=== PATIENT | female | born 1985 | race Hispanic/Latino ===

== ENCOUNTER 2021-09-04 02:40 | Emergency (ER) | payer MEDICAID, SELFPAY ==
[2021-09-04] MEDS ORDERED: Ketorolac Tromethamine 30 MG/ML VIAL ONE (03:13)
[2021-09-04 03:15] LABS: #Basophils 0.1 thou/uL (0.0-0.2); #Eosinphils 0.2 thou/uL (0.0-0.7); #Lymphocytes 1.5 thou/uL (1.20-3.40); #Monocytes 0.5 thou/uL (0.11-0.59); #Neutrophils 8.4 thou/uL (1.40-6.50); %Basophils 0.5 % (0.0-1.0); %Lymphocytes 14.2 % (21.0-51.0); %Monocytes 4.8 % (0.0-10.0); %Neutrophils 78.5 % (42.0-75.0); Hemoglobin 13.5 g/dL (12.0-16.0); Mean Corpuscular HGB CONC 33.7 g/dL (32.0-36.0); Mean Corpuscular Hemoglobin 31.5 pg (27.0-31.0); Mean Corpuscular Volume 93.5 fL (78.0-98.0); Mean Platelet Volume 7.4 fL (7.4-10.4); Platelet Count 273 thou/uL (130-400); White Blood Cell (WBC) Count 10.7 thou/uL (4.8-10.8)
[2021-09-04 03:22] LABS: Bilirubin Negative (Negative); Blood, Urine Negative (Negative); Clarity Turbid (Clear); Glucose, Urine (Dipstick) Normal (Negative); Ketone, Urine Negative (Negative); Leukocyte Negative Leu/uL (Negative); Nitrite Negative (Negative); Protein, Urine (Dipstick) 10 mg/dL (Neg-Trace); Specific Gravity, Urine 1.023 (1.002-1.036); Urobilinogen Normal mg/dL (Less than 2)
[2021-09-04 03:27] LABS: Pregnancy Test - Urine (BHCG) Negative (Negative); Pregu Control Background? CLEAR/WHITE (CLR/WHITE); Pregu Control Bar Appear? YES (CONTROL BAR); Specific Gravity 1.023 (1.002-1.036)
[2021-09-04 03:34] LABS: ALT (SGPT) 12 U/L (8-55); AST (SGOT) 13 U/L (5-34); Albumin 4.4 g/dL (3.5-5.0); Alkaline Phosphatase 53 U/L (40-110); Anion Gap 14 mmol/L (10-20); BUN (Urea Nitrogen) 18 mg/dL (7.0-18.7); Bilirubin, Total 0.3 mg/dL (0.2-1.2); Calc. Creatinine Clearance 0 mL/min (70-130); Calcium 9.4 mg/dL (7.8-10.44); Carbon Dioxide 23 mmol/L (22-29); Chloride 103 mmol/L (98-107); Glucose 121 mg/dL (70-105); Lipase 18 U/L (8-78); Potassium 3.7 mmol/L (3.5-5.1); Protein, Total 7.4 g/dL (6.0-8.3); Sodium 136 mmol/L (136-145)
== END 2021-09-04 04:10 | disposition home or self-care (01) ==
LOC: ERS 02:40
DX: K80.20 Calculus of gallbladder without cholecystitis without obstruction (principal); Z72.0 Tobacco use
CPT/HCPCS: 76705; 80053; 81003; 81025; 83690; 85025; 96374; J1885

== ENCOUNTER 2022-06-12 02:02 | Emergency (ER) | payer SELFPAY ==
[2022-06-12 02:57] LABS: Bilirubin Negative (Negative); Blood, Urine Negative (Negative); Clarity Extra Turbid (Clear); Glucose, Urine (Dipstick) Normal (Negative); Ketone, Urine Negative (Negative); Leukocyte Negative Leu/uL (Negative); Nitrite 2+ (Negative); Protein, Urine (Dipstick) 10 mg/dL (Neg-Trace); RBC/HPF 0-3 HPF (0-3); Specific Gravity, Urine 1.026 (1.002-1.036); Urobilinogen Normal mg/dL (Less than 2)
[2022-06-12 02:59] LABS: Bacteria/HPF 3+ HPF (None Seen)
[2022-06-12 03:01] LABS: #Basophils 0.1 thou/uL (0.0-0.2); #Eosinphils 0.3 thou/uL (0.0-0.7); #Lymphocytes 2.1 thou/uL (1.20-3.40); #Monocytes 0.7 thou/uL (0.11-0.59); #Neutrophils 6.8 thou/uL (1.40-6.50); %Basophils 0.7 % (0.0-1.0); %Eosinophils 2.6 % (0.0-10.0); %Lymphocytes 21.4 % (21.0-51.0); %Monocytes 6.9 % (0.0-10.0); %Neutrophils 68.4 % (42.0-75.0); Hemoglobin 12.8 g/dL (12.0-16.0); Mean Corpuscular HGB CONC 33.4 g/dL (32.0-36.0); Mean Corpuscular Hemoglobin 31.4 pg (27.0-31.0); Mean Corpuscular Volume 94.1 fl (78.0-98.0); Mean Platelet Volume 7.8 fL (7.4-10.4); Platelet Count 283 10x3/uL (130-400); RBC Distribution Width 11.9 % (11.5-14.5); Red Blood Cell (RBC) Count 4.08 mill/uL (4.20-5.40)
[2022-06-12 03:04] LABS: BHCG - Serum Negative (NEGATIVE); Pregs Control Background? CLEAR/WHITE (CLR/WHITE); Pregs Control Bar Appear? YES (CONTROL BAR)
[2022-06-12 03:22] LABS: ALT (SGPT) 8 U/L (8-55); AST (SGOT) 11 U/L (5-34); Albumin 4.3 g/dL (3.5-5.0); Alkaline Phosphatase 54 U/L (40-110); Anion Gap 11 mmol/L (10-20); BUN (Urea Nitrogen) 17 mg/dL (7.0-18.7); Bilirubin, Total 0.3 mg/dL (0.2-1.2); Calc. Creatinine Clearance 0 mL/min (70-130); Carbon Dioxide 26 mmol/L (22-29); Chloride 104 mmol/L (98-107); Estimated GFR 107; Globulin 2.7 g/dL (2.4-3.5); Glucose 97 mg/dL (70-105); Lipase 18 U/L (8-78); Potassium 3.9 mmol/L (3.5-5.1); Sodium 137 mmol/L (136-145)
[2022-06-12] MEDS ORDERED: Ondansetron ODT 4 MG TAB ONE (04:22)
[2022-06-12] MEDS ORDERED: Acetaminophen 500 MG TAB ONE (04:22)
== END 2022-06-12 04:50 | disposition home or self-care (01) ==
LOC: ERS 02:02
DX: B34.9 Viral infection, unspecified (principal); N39.0 Urinary tract infection, site not specified; F17.200 Nicotine dependence, unspecified, uncomplicated
CPT/HCPCS: 36415; 80053; 81003; 81015; 83690; 84703; 85025; 87077; 87086; 87186; 99284; Q0162

== ENCOUNTER 2022-07-29 16:41 | Inpatient (IN) | payer SELFPAY ==
[2022-07-29 17:04] LABS: #Eosinphils 0.1 thou/uL (0.0-0.7); #Lymphocytes 0.8 thou/uL (1.20-3.40); #Monocytes 0.5 thou/uL (0.11-0.59); #Neutrophils 5.5 thou/uL (1.40-6.50); %Basophils 0.3 % (0.0-1.0); %Lymphocytes 11.4 % (21.0-51.0); %Monocytes 7.1 % (0.0-10.0); %Neutrophils 79.2 % (42.0-75.0); Hemoglobin 13.4 g/dL (12.0-16.0); Mean Corpuscular HGB CONC 33.4 g/dL (32.0-36.0); Mean Corpuscular Hemoglobin 30.9 pg (27.0-31.0); Mean Corpuscular Volume 92.7 fl (78.0-98.0); Mean Platelet Volume 7.7 fL (7.4-10.4); Platelet Count 337 10x3/uL (130-400); RBC Distribution Width 11.9 % (11.5-14.5); Red Blood Cell (RBC) Count 4.33 mill/uL (4.20-5.40)
[2022-07-29 17:16] LABS: BHCG - Serum Negative (NEGATIVE); Pregs Control Background? CLEAR/WHITE (CLR/WHITE); Pregs Control Bar Appear? YES (CONTROL BAR)
[2022-07-29 17:27] LABS: ALT (SGPT) 837 U/L (8-55); AST (SGOT) 570 U/L (5-34); Albumin 4.5 g/dL (3.5-5.0); Alkaline Phosphatase 185 U/L (40-110); Anion Gap 14 mmol/L (10-20); BUN (Urea Nitrogen) 11 mg/dL (7.0-18.7); Bilirubin, Total 3.2 mg/dL (0.2-1.2); Calc. Creatinine Clearance 0 mL/min (70-130); Calcium 9.6 mg/dL (7.8-10.44); Carbon Dioxide 23 mmol/L (22-29); Chloride 104 mmol/L (98-107); Estimated GFR 107; Globulin 3.2 g/dL (2.4-3.5); Glucose 134 mg/dL (70-105); Lipase 11 U/L (8-78); Potassium 3.7 mmol/L (3.5-5.1); Protein, Total 7.7 g/dL (6.0-8.3); Sodium 137 mmol/L (136-145)
[2022-07-29] MEDS ORDERED: Morphine 4 MG/ML VIAL ONE (18:22)
[2022-07-29] MEDS ORDERED: Ondansetron PF 4 MG/2 ML Vial ONE (18:22)
[2022-07-29] MEDS ORDERED: Promethazine HCl 25 MG/ML VIAL IM PRN (19:09)
[2022-07-29] MEDS ORDERED: Ondansetron PF 4 MG/2 ML Vial IVP PRN (19:09)
[2022-07-29] MEDS ORDERED: TETANUS, DIPHTHERIA TOX,ADULT (TDVAX) 0.5 ML VIAL IM ONE (19:09)
[2022-07-29] MEDS ORDERED: Dextrose 50% Abboject 50 ML SYRINGE SLOW IVP PRN (19:09)
[2022-07-29] MEDS ORDERED: Dextrose 5% in Water 1,000 ML IV PRN (19:09)
[2022-07-29] MEDS ORDERED: Piperacillin/Tazobactam 3.375 GM in Sodium Chloride 0.9% 100 ML IVPB SCH (19:30)
[2022-07-29] MEDS ORDERED: Piperacillin/Tazobactam 3.375 GM VIAL ONE (19:30)
[2022-07-29] MEDS: Famotidine 20 MG TAB PO SCH (22:41)
[2022-07-29] MEDS: Morphine 2 MG/ML VIAL SLOW IVP PRN (22:42)
[2022-07-29] MEDS: Sodium Chloride 0.9% 1,000 ML IV SCH (22:43)
[2022-07-30] MEDS: Piperacillin/Tazobactam 3.375 GM in Sodium Chloride 0.9% 100 ML IVPB SCH ×3 (00:38→19:18)
[2022-07-30] MEDS: Morphine 2 MG/ML VIAL SLOW IVP PRN ×4 (00:38→21:04)
[2022-07-30 01:30] VITALS: BMI 23.6
[2022-07-30 03:16] LABS: SARS-CoV-2 NAA Rapid Test Not Detected (NotDetected)
[2022-07-30 05:48] LABS: #Eosinphils 0.2 thou/uL (0.0-0.7); #Monocytes 0.5 thou/uL (0.11-0.59); #Neutrophils 4.6 thou/uL (1.40-6.50); %Basophils 0.4 % (0.0-1.0); %Eosinophils 3.8 % (0.0-10.0); %Lymphocytes 16.1 % (21.0-51.0); %Monocytes 7.4 % (0.0-10.0); %Neutrophils 72.3 % (42.0-75.0); Mean Corpuscular HGB CONC 32.7 g/dL (32.0-36.0); Mean Corpuscular Hemoglobin 30.8 pg (27.0-31.0); Mean Corpuscular Volume 94.2 fl (78.0-98.0); Mean Platelet Volume 7.8 fL (7.4-10.4); Platelet Count 286 10x3/uL (130-400); RBC Distribution Width 12.1 % (11.5-14.5); Red Blood Cell (RBC) Count 3.91 mill/uL (4.20-5.40); White Blood Cell (WBC) Count 6.3 10x3/uL (4.8-10.8)
[2022-07-30 06:07] LABS: ALT (SGPT) 705 U/L (8-55); AST (SGOT) 374 U/L (5-34); Albumin 3.7 g/dL (3.5-5.0); Alkaline Phosphatase 191 U/L (40-110); Anion Gap 8 mmol/L (10-20); BUN (Urea Nitrogen) 6 mg/dL (7.0-18.7); Calc. Creatinine Clearance 109 mL/min (70-130); Calcium 8.7 mg/dL (7.8-10.44); Carbon Dioxide 27 mmol/L (22-29); Chloride 107 mmol/L (98-107); Estimated GFR 115; Globulin 2.8 g/dL (2.4-3.5); Glucose 100 mg/dL (70-105); Protein, Total 6.5 g/dL (6.0-8.3); Sodium 138 mmol/L (136-145)
[2022-07-30] MEDS: Sodium Chloride 0.9% 1,000 ML IV SCH ×2 (06:48→21:13)
[2022-07-30] MEDS: Famotidine 20 MG TAB PO SCH ×2 (08:28→21:04)
[2022-07-30] MEDS ORDERED: Iopamidol 30 ML ONE (14:28)
[2022-07-30] MEDS ORDERED: Bupivacaine/Epinephrine 0.25% 30 ML VIAL ONE (14:28)
[2022-07-30] MEDS ORDERED: Piperacillin/Tazobactam 3.375 GM VIAL ONE (15:13)
[2022-07-30] MEDS ORDERED: Sodium Chloride 0.9% 100 ML ONE (15:13)
[2022-07-30] MEDS ORDERED: Promethazine HCl 25 MG/ML VIAL ONE (15:27)
[2022-07-30] MEDS ORDERED: fentaNYL PF 100 MCG/2 ML SYRINGE ONE (15:28)
[2022-07-30] MEDS ORDERED: Famotidine/PF 20 mg/2ml Vial ONE (15:28)
[2022-07-30] MEDS ORDERED: ePHEDrine 50 MG/ML VIAL ONE (15:45)
[2022-07-30] MEDS ORDERED: Ketorolac Tromethamine 30 MG/ML VIAL ONE (15:45)
[2022-07-30] MEDS ORDERED: Dexamethasone 20 MG/5 ML VIAL ONE (15:45)
[2022-07-30] MEDS ORDERED: PROPOFOL 200 MG/20 ML VIAL ONE (15:45)
[2022-07-30] MEDS ORDERED: Lidocaine 1% PF 5 ML VIAL ONE (15:45)
[2022-07-30] MEDS ORDERED: Ondansetron PF 4 MG/2 ML Vial ONE (15:45)
[2022-07-30] MEDS ORDERED: Rocuronium Bromide 10 MG/ML (10ML VIAL) ONE (15:45)
[2022-07-30] MEDS ORDERED: Ondansetron HCl/PF 4 MG/2 ML Vial IVP PRN (18:32)
[2022-07-30] MEDS ORDERED: Promethazine HCl 25 MG/ML VIAL IM PRN (18:32)
[2022-07-30] MEDS ORDERED: Fentanyl 100 MCG/2 ML VIAL ONE (18:39)
[2022-07-31] MEDS: Sodium Chloride 0.9% 1,000 ML IV SCH ×3 (00:18→17:47)
[2022-07-31] MEDS: Morphine 2 MG/ML VIAL SLOW IVP PRN ×4 (00:18→20:51)
[2022-07-31 07:17] LABS: #Lymphocytes 0.6 thou/uL (1.20-3.40); #Monocytes 0.5 thou/uL (0.11-0.59); #Neutrophils 5.8 thou/uL (1.40-6.50); %Basophils 0.3 % (0.0-1.0); %Eosinophils 0.4 % (0.0-10.0); %Monocytes 7.4 % (0.0-10.0); %Neutrophils 83.9 % (42.0-75.0); Hemoglobin 11.2 g/dL (12.0-16.0); Mean Corpuscular HGB CONC 32.8 g/dL (32.0-36.0); Mean Corpuscular Hemoglobin 30.9 pg (27.0-31.0); Mean Corpuscular Volume 94.2 fl (78.0-98.0); Mean Platelet Volume 8.3 fL (7.4-10.4); Platelet Count 252 10x3/uL (130-400); RBC Distribution Width 12.2 % (11.5-14.5); Red Blood Cell (RBC) Count 3.62 mill/uL (4.20-5.40)
[2022-07-31 07:38] LABS: ALT (SGPT) 494 U/L (8-55); AST (SGOT) 175 U/L (5-34); Albumin 3.4 g/dL (3.5-5.0); Alkaline Phosphatase 230 U/L (40-110); Anion Gap 11 mmol/L (10-20); BUN (Urea Nitrogen) 6 mg/dL (7.0-18.7); Bilirubin, Total 3.6 mg/dL (0.2-1.2); Calc. Creatinine Clearance 122 mL/min (70-130); Calcium 8.8 mg/dL (7.8-10.44); Carbon Dioxide 24 mmol/L (22-29); Chloride 106 mmol/L (98-107); Estimated GFR 118; Globulin 2.8 g/dL (2.4-3.5); Glucose 97 mg/dL (70-105); Phosphorus 3.7 mg/dL (2.3-4.7); Potassium 3.9 mmol/L (3.5-5.1); Protein, Total 6.2 g/dL (6.0-8.3); Sodium 137 mmol/L (136-145)
[2022-07-31] MEDS: Famotidine 20 MG TAB PO SCH ×2 (08:22→20:52)
[2022-07-31] MEDS: Piperacillin/Tazobactam 3.375 GM in Sodium Chloride 0.9% 100 ML IVPB SCH ×3 (09:22→17:47)
[2022-07-31] MEDS ORDERED: fentaNYL PF 100 MCG/2 ML SYRINGE ONE (09:27)
[2022-07-31] MEDS ORDERED: SUGAMMADEX SODIUM 200 MG/2 ML VIAL ONE (09:27)
[2022-07-31] MEDS ORDERED: Iopamidol 30 ML ONE (10:09)
[2022-07-31] MEDS ORDERED: Indomethacin 50 MG SUPP ONE (10:09)
[2022-07-31] MEDS ORDERED: Midazolam HCl 2 mg/2 ml Vial ONE (10:15)
[2022-07-31] MEDS ORDERED: Fentanyl 100 MCG/2 ML VIAL ONE (10:16)
[2022-07-31] MEDS ORDERED: Sodium Chloride 0.9% 100 ML ONE (10:20)
[2022-07-31] MEDS ORDERED: Piperacillin/Tazobactam 3.375 GM VIAL ONE (10:20)
[2022-07-31] MEDS ORDERED: Ketorolac Tromethamine 30 MG/ML VIAL ONE (10:50)
[2022-07-31] MEDS ORDERED: Lidocaine 1% PF 5 ML VIAL ONE (10:50)
[2022-07-31] MEDS ORDERED: Dexamethasone 20 MG/5 ML VIAL ONE (10:50)
[2022-07-31] MEDS ORDERED: Ondansetron PF 4 MG/2 ML Vial ONE (10:50)
[2022-07-31] MEDS ORDERED: PROPOFOL 200 MG/20 ML VIAL ONE (10:50)
[2022-07-31] MEDS ORDERED: Rocuronium Bromide 10 MG/ML (10ML VIAL) ONE (10:50)
[2022-07-31] MEDS ORDERED: Morphine Sulfate 2 MG/ML SYRINGE SLOW IVP PRN (12:04)
[2022-07-31] MEDS ORDERED: Promethazine HCl 25 MG/ML VIAL IM PRN (12:04)
[2022-07-31] MEDS ORDERED: HYDROmorphone 2 MG/ML VIAL SLOW IVP PRN (12:04)
[2022-07-31] MEDS ORDERED: Ondansetron HCl/PF 4 MG/2 ML Vial IVP PRN (12:04)
[2022-07-31] MEDS ORDERED: Meperidine HCl/PF 25 MG/ML VIAL SLOW IVP PRN (12:04)
[2022-07-31 19:47] LABS: Troponin I Less than 0.010 ng/mL (< 0.028)
[2022-08-01] MEDS: Morphine 2 MG/ML VIAL SLOW IVP PRN ×5 (01:22→20:30)
[2022-08-01] MEDS: Piperacillin/Tazobactam 3.375 GM in Sodium Chloride 0.9% 100 ML IVPB SCH ×3 (01:22→15:47)
[2022-08-01] MEDS: Sodium Chloride 0.9% 1,000 ML IV SCH ×4 (03:32→20:33)
[2022-08-01 06:37] LABS: #Lymphocytes 0.7 thou/uL (1.20-3.40); #Monocytes 0.6 thou/uL (0.11-0.59); #Neutrophils 9.9 thou/uL (1.40-6.50); %Basophils 0.1 % (0.0-1.0); %Eosinophils 0.4 % (0.0-10.0); %Lymphocytes 5.8 % (21.0-51.0); %Monocytes 4.9 % (0.0-10.0); %Neutrophils 88.9 % (42.0-75.0); Hemoglobin 11.6 g/dL (12.0-16.0); Mean Corpuscular Volume 93.8 fl (78.0-98.0); Platelet Count 263 10x3/uL (130-400); RBC Distribution Width 12.3 % (11.5-14.5); Red Blood Cell (RBC) Count 3.76 mill/uL (4.20-5.40); White Blood Cell (WBC) Count 11.2 10x3/uL (4.8-10.8)
[2022-08-01 07:03] LABS: ALT (SGPT) 365 U/L (8-55); AST (SGOT) 106 U/L (5-34); Albumin 3.2 g/dL (3.5-5.0); Alkaline Phosphatase 230 U/L (40-110); Anion Gap 11 mmol/L (10-20); BUN (Urea Nitrogen) 9 mg/dL (7.0-18.7); Bilirubin, Total 2.2 mg/dL (0.2-1.2); Calc. Creatinine Clearance 120 mL/min (70-130); Calcium 8.1 mg/dL (7.8-10.44); Carbon Dioxide 22 mmol/L (22-29); Chloride 108 mmol/L (98-107); Estimated GFR 118; Globulin 2.6 g/dL (2.4-3.5); Glucose 115 mg/dL (70-105); Magnesium 1.9 mg/dL (1.6-2.6); Potassium 3.5 mmol/L (3.5-5.1); Protein, Total 5.8 g/dL (6.0-8.3); Sodium 137 mmol/L (136-145)
[2022-08-01] MEDS ORDERED: Potassium Phosphate 30 MMOL in Sodium Chloride 0.9% 250 ML 250 ML IVPB SCH (07:45)
[2022-08-01] MEDS: Famotidine 20 MG TAB PO SCH ×2 (09:08→20:32)
[2022-08-01] MEDS ORDERED: Iopamidol 30 ML ONE ×2 (10:35→12:30)
[2022-08-01] MEDS ORDERED: Indomethacin 50 MG SUPP ONE (10:38)
[2022-08-01] MEDS ORDERED: Fentanyl 100 MCG/2 ML VIAL ONE (11:17)
[2022-08-01] MEDS ORDERED: Midazolam HCl 2 mg/2 ml Vial ONE (11:35)
[2022-08-01] MEDS ORDERED: Ondansetron PF 4 MG/2 ML Vial ONE (11:41)
[2022-08-01] MEDS ORDERED: Glycopyrrolate 0.2 MG/ML 5 ML SYRINGE ONE (11:41)
[2022-08-01] MEDS ORDERED: Rocuronium Bromide 10 MG/ML (10ML VIAL) ONE (11:41)
[2022-08-01] MEDS ORDERED: PROPOFOL 200 MG/20 ML VIAL ONE (11:41)
[2022-08-01] MEDS ORDERED: Lidocaine 1% PF 5 ML VIAL ONE (11:41)
[2022-08-01] MEDS ORDERED: NEOSTIGMINE 3 MG/3 ML SYR 3 MG/3 ML SYRINGE ONE (11:41)
[2022-08-01] MEDS ORDERED: Dexamethasone 20 MG/5 ML VIAL ONE (11:41)
[2022-08-01] MEDS ORDERED: Ondansetron HCl/PF 4 MG/2 ML Vial IVP PRN (13:05)
[2022-08-01] MEDS ORDERED: Promethazine HCl 25 MG/ML VIAL IM PRN (13:05)
[2022-08-01] MEDS: Acetaminophen 325 MG TAB PO PRN (17:42)
[2022-08-02] MEDS: Piperacillin/Tazobactam 3.375 GM in Sodium Chloride 0.9% 100 ML IVPB SCH ×3 (01:15→16:31)
[2022-08-02] MEDS: Morphine 2 MG/ML VIAL SLOW IVP PRN (04:44)
[2022-08-02] MEDS: Acetaminophen 325 MG TAB PO PRN ×3 (04:44→18:14)
[2022-08-02 06:20] LABS: #Eosinphils 0.1 thou/uL (0.0-0.7); #Lymphocytes 1.3 thou/uL (1.20-3.40); #Monocytes 0.7 thou/uL (0.11-0.59); #Neutrophils 9.6 thou/uL (1.40-6.50); %Basophils 0.2 % (0.0-1.0); %Lymphocytes 10.7 % (21.0-51.0); %Monocytes 5.8 % (0.0-10.0); %Neutrophils 82.3 % (42.0-75.0); Hemoglobin 10.6 g/dL (12.0-16.0); Mean Corpuscular HGB CONC 32.3 g/dL (32.0-36.0); Mean Corpuscular Hemoglobin 30.5 pg (27.0-31.0); Mean Corpuscular Volume 94.6 fl (78.0-98.0); Mean Platelet Volume 8.2 fL (7.4-10.4); Platelet Count 256 10x3/uL (130-400); RBC Distribution Width 12.5 % (11.5-14.5); Red Blood Cell (RBC) Count 3.48 mill/uL (4.20-5.40); White Blood Cell (WBC) Count 11.7 10x3/uL (4.8-10.8)
[2022-08-02 06:41] LABS: ALT (SGPT) 239 U/L (8-55); AST (SGOT) 48 U/L (5-34); Albumin 3.1 g/dL (3.5-5.0); Alkaline Phosphatase 186 U/L (40-110); Anion Gap 10 mmol/L (10-20); BUN (Urea Nitrogen) 6 mg/dL (7.0-18.7); Bilirubin, Total 1.8 mg/dL (0.2-1.2); Calc. Creatinine Clearance 126 mL/min (70-130); Calcium 8.1 mg/dL (7.8-10.44); Carbon Dioxide 26 mmol/L (22-29); Chloride 108 mmol/L (98-107); Estimated GFR 119; Globulin 2.6 g/dL (2.4-3.5); Glucose 78 mg/dL (70-105); Lipase 314 U/L (8-78); Magnesium 1.8 mg/dL (1.6-2.6); Phosphorus 1.8 mg/dL (2.3-4.7); Potassium 3.6 mmol/L (3.5-5.1); Protein, Total 5.7 g/dL (6.0-8.3); Sodium 140 mmol/L (136-145)
[2022-08-02] MEDS ORDERED: FLU VACC QS2022-23(6MOS UP)/PF 60 MCG/0.5 ML SYRINGE IM ONE (09:00)
[2022-08-02] MEDS: Sodium Chloride 0.9% 1,000 ML IV SCH ×2 (09:11→16:31)
[2022-08-02] MEDS: Famotidine 20 MG TAB PO SCH ×2 (09:12→22:00)
[2022-08-02] MEDS: traMADol HCl 50 MG TAB PO PRN (21:58)
[2022-08-03] MEDS: Piperacillin/Tazobactam 3.375 GM in Sodium Chloride 0.9% 100 ML IVPB SCH ×2 (01:25→08:33)
[2022-08-03 06:00] LABS: #Eosinphils 0.4 thou/uL (0.0-0.7); #Lymphocytes 1.3 thou/uL (1.20-3.40); #Monocytes 0.7 thou/uL (0.11-0.59); #Neutrophils 10.9 thou/uL (1.40-6.50); %Basophils 0.2 % (0.0-1.0); %Eosinophils 3.1 % (0.0-10.0); %Lymphocytes 9.8 % (21.0-51.0); %Monocytes 5.4 % (0.0-10.0); %Neutrophils 81.5 % (42.0-75.0); Hemoglobin 10.3 g/dL (12.0-16.0); Mean Corpuscular Hemoglobin 30.9 pg (27.0-31.0); Mean Corpuscular Volume 93.7 fl (78.0-98.0); Platelet Count 272 10x3/uL (130-400); RBC Distribution Width 12.4 % (11.5-14.5); Red Blood Cell (RBC) Count 3.33 mill/uL (4.20-5.40); White Blood Cell (WBC) Count 13.4 10x3/uL (4.8-10.8)
[2022-08-03 07:06] LABS: ALT (SGPT) 170 U/L (8-55); AST (SGOT) 27 U/L (5-34); Albumin 2.9 g/dL (3.5-5.0); Alkaline Phosphatase 182 U/L (40-110); Anion Gap 13 mmol/L (10-20); BUN (Urea Nitrogen) 4 mg/dL (7.0-18.7); Bilirubin, Total 1.4 mg/dL (0.2-1.2); Calc. Creatinine Clearance 141 mL/min (70-130); Calcium 8.5 mg/dL (7.8-10.44); Carbon Dioxide 23 mmol/L (22-29); Chloride 106 mmol/L (98-107); Estimated GFR 123; Globulin 2.9 g/dL (2.4-3.5); Glucose 61 mg/dL (70-105); Lipase 32 U/L (8-78); Magnesium 1.9 mg/dL (1.6-2.6); Phosphorus 2.5 mg/dL (2.3-4.7); Potassium 3.4 mmol/L (3.5-5.1); Protein, Total 5.8 g/dL (6.0-8.3); Sodium 139 mmol/L (136-145)
[2022-08-03] MEDS: Famotidine 20 MG TAB PO SCH (08:35)
[2022-08-03] MEDS: traMADol HCl 50 MG TAB PO PRN ×2 (08:35→16:16)
[2022-08-03 16:00] VITALS: BP 116/77; TEMP 98.3
[2022-08-03] MEDS ORDERED: Amoxicillin/Potassium Clav 875 MG TAB PO SCH (21:00)
[2022-08-04] MEDS ORDERED: Saccharomyces boulardii 250 MG CAP PO SCH (09:00)
== END 2022-08-03 16:40 | disposition home or self-care (01) | DRG 417 ==
LOC: ERS 16:41 → SURG A 19:12
PROVIDERS: ADMIT Surgery; ATTEND Surgery
PROC: 0FT44ZZ Resection of Gallbladder, Percutaneous Endoscopic Approach (ICD-10-PCS; principal; 2022-07-30)
PROC: 0F9 Hepatobiliary System and Pancreas, Drainage (ICD-10-PCS; 2022-07-30)
PROC: 0FJB8ZZ Inspection of Hepatobiliary Duct, Via Natural or Artificial Opening Endoscopic (ICD-10-PCS; 2022-07-31)
PROC: 0F798DZ Dilation of Common Bile Duct with Intraluminal Device, Via Natural or Artificial Opening Endoscopic (ICD-10-PCS; 2022-08-01)
DX: K80.67 Calculus of gallbladder and bile duct with acute and chronic cholecystitis with obstruction (principal); K85.10 Biliary acute pancreatitis without necrosis or infection; F17.210 Nicotine dependence, cigarettes, uncomplicated; E80.6 Other disorders of bilirubin metabolism; Z20.822 Contact with and (suspected) exposure to COVID-19; Z98.890 Other specified postprocedural states
CPT/HCPCS: 36415; 74181; 74330; 76705; 80053; 83690; 83735; 84100; 84484; 84703; 85025; 88304; 93005; 93010; 96374; 96375; C1713; C1889; C2617; C2625; J1100; J1885; J2250; J2270; J2272; J2405; J2543; J2550; J2704; J3010; J3490; J7050; Q9967; S0028; U0002

== ENCOUNTER 2022-09-28 23:48 | Observation (INO) | payer OTHER, SELFPAY ==
[2022-09-29 00:23] LABS: #Basophils 0.1 thou/uL (0.0-0.2); #Eosinphils 0.2 thou/uL (0.0-0.7); #Lymphocytes 1.3 thou/uL (1.20-3.40); #Monocytes 0.4 thou/uL (0.11-0.59); #Neutrophils 4.1 thou/uL (1.40-6.50); %Basophils 1.2 % (0.0-1.0); %Eosinophils 2.6 % (0.0-10.0); %Lymphocytes 21.2 % (21.0-51.0); %Monocytes 6.6 % (0.0-10.0); %Neutrophils 68.4 % (42.0-75.0); Hemoglobin 12.4 g/dL (12.0-16.0); Mean Corpuscular HGB CONC 32.3 g/dL (32.0-36.0); Mean Corpuscular Volume 93.1 fl (78.0-98.0); Platelet Count 316 10x3/uL (130-400); RBC Distribution Width 13.1 % (11.5-14.5); Red Blood Cell (RBC) Count 4.12 mill/uL (4.20-5.40); White Blood Cell (WBC) Count 6.1 10x3/uL (4.8-10.8)
[2022-09-29] MEDS ORDERED: Morphine 4 MG/ML VIAL ONE ×2 (00:26→02:20)
[2022-09-29] MEDS ORDERED: Ondansetron PF 4 MG/2 ML Vial ONE ×2 (00:27→10:33)
[2022-09-29 00:50] LABS: ALT (SGPT) 22 U/L (8-55); AST (SGOT) 34 U/L (5-34); Albumin 4.2 g/dL (3.5-5.0); Alkaline Phosphatase 62 U/L (40-110); Anion Gap 18 mmol/L (10-20); BHCG - Serum Negative (NEGATIVE); BUN (Urea Nitrogen) 13 mg/dL (7.0-18.7); Bilirubin, Total 0.3 mg/dL (0.2-1.2); Calc. Creatinine Clearance 0 mL/min (70-130); Calcium 9.2 mg/dL (7.8-10.44); Carbon Dioxide 17 mmol/L (22-29); Chloride 111 mmol/L (98-107); Estimated GFR 109; Glucose 98 mg/dL (70-105); Lipase 27 U/L (8-78); Pregs Control Background? CLEAR/WHITE (CLR/WHITE); Pregs Control Bar Appear? YES (CONTROL BAR); Protein, Total 7.2 g/dL (6.0-8.3); Sodium 143 mmol/L (136-145)
[2022-09-29] MEDS ORDERED: Potassium Chloride 20 MEQ TAB ONE (01:30)
[2022-09-29] MEDS ORDERED: Dextrose 5% in Water 1,000 ML IV PRN (03:05)
[2022-09-29] MEDS ORDERED: Ondansetron PF 4 MG/2 ML Vial IVP PRN (03:05)
[2022-09-29] MEDS ORDERED: hydrALAZINE 20 MG/ML VIAL SLOW IVP PRN (03:05)
[2022-09-29] MEDS ORDERED: Dextrose 50% Abboject 50 ML SYRINGE SLOW IVP PRN (03:05)
[2022-09-29] MEDS ORDERED: Morphine 4 MG/ML VIAL SLOW IVP PRN (03:05)
[2022-09-29] MEDS ORDERED: traMADol HCl 50 MG TAB PO PRN (03:06)
[2022-09-29] MEDS ORDERED: Cyclobenzaprine 10 MG TAB PO PRN (03:06)
[2022-09-29] MEDS ORDERED: Potassium Chloride 20 MEQ TAB PO SCH (03:30)
[2022-09-29 04:55] VITALS: BMI 22.8
[2022-09-29] MEDS ORDERED: Sodium Chloride 0.9% 1,000 ML IV SCH (05:00)
[2022-09-29] MEDS: traMADol HCl 50 MG TAB PO PRN ×2 (05:15→23:36)
[2022-09-29] MEDS: Acetaminophen 500 MG TAB PO SCH ×4 (05:18→23:36)
[2022-09-29] MEDS ORDERED: CEFAZOLIN 2 GM in Sodium Chloride 0.9% 100 ML IVPB SCH (08:15)
[2022-09-29] MEDS: Gabapentin 300 MG CAP PO SCH ×3 (09:02→20:47)
[2022-09-29] MEDS: Senokot S 8.6-50 MG TAB PO SCH ×2 (09:02→20:48)
[2022-09-29] MEDS: Famotidine 20 MG TAB PO SCH ×2 (09:02→20:48)
[2022-09-29] MEDS: Polyethylene Glycol 3350 17 GM Packet PO SCH (09:02)
[2022-09-29] MEDS ORDERED: Sodium Chloride 0.9% 100 ML ONE (09:53)
[2022-09-29] MEDS ORDERED: CEFAZOLIN 2 GM VIAL ONE (09:53)
[2022-09-29] MEDS ORDERED: Ketorolac Tromethamine 30 MG/ML VIAL ONE (10:33)
[2022-09-29] MEDS ORDERED: Lidocaine 1% PF 5 ML VIAL ONE (10:33)
[2022-09-29] MEDS ORDERED: Glycopyrrolate 0.2 MG/ML 5 ML SYRINGE ONE (10:33)
[2022-09-29] MEDS ORDERED: Dexamethasone 20 MG/5 ML VIAL ONE (10:33)
[2022-09-29] MEDS ORDERED: PROPOFOL 200 MG/20 ML VIAL ONE (10:33)
[2022-09-29] MEDS ORDERED: Rocuronium Bromide 10 MG/ML (10ML VIAL) ONE (10:33)
[2022-09-29] MEDS ORDERED: ePHEDrine 50 MG/ML VIAL ONE (10:33)
[2022-09-29] MEDS ORDERED: NEOSTIGMINE 3 MG/3 ML SYR 3 MG/3 ML SYRINGE ONE (10:33)
[2022-09-29] MEDS ORDERED: Bupivacaine PF 0.5% 30 ML VIAL ONE (11:59)
[2022-09-29] MEDS ORDERED: Iopamidol-370 76% 500 ML MDV (1 ML CHARGE) ONE (12:05)
[2022-09-29] MEDS ORDERED: Ondansetron HCl/PF 4 MG/2 ML Vial IVP PRN (12:30)
[2022-09-29] MEDS ORDERED: Promethazine HCl 25 MG/ML VIAL IM/IV PRN (12:30)
[2022-09-29] MEDS ORDERED: FENTANYL 50 MCG/ML 1 ML VIAL ONE (12:47)
[2022-09-29] MEDS ORDERED: Non-Formulary Medication 1 EACH PO PRN (12:50)
[2022-09-29] MEDS: CEFAZOLIN 2 GM in Sodium Chloride 0.9% 100 ML IVPB SCH (17:09)
[2022-09-29] MEDS ORDERED: Ibuprofen 200 MG TAB PO SCH (18:15)
[2022-09-29] MEDS: Ibuprofen 200 MG TAB PO SCH (23:36)
[2022-09-30 00:24] LABS: Amphetamine Not Detected (NotDetected); Barbiturates Screen Not Detected (NotDetected); Benzodiazepine Screen Not Detected (NotDetected); Cocaine Metabolite Screen Not Detected (NotDetected); Methadone Not Detected (NotDetected); Methamphetamine Detected (NotDetected); Opiate Screen Detected (NotDetected); Oxycodone Screen Not Detected (NotDetected); Phencyclidine (PCP) Not Detected (NotDetected); THC/Cannabinoid Screen Not Detected (NotDetected); Tricyclic Screen Not Detected (NotDetected)
[2022-09-30] MEDS: CEFAZOLIN 2 GM in Sodium Chloride 0.9% 100 ML IVPB SCH (02:56)
[2022-09-30] MEDS: Ibuprofen 200 MG TAB PO SCH ×2 (05:12→11:19)
[2022-09-30] MEDS: Acetaminophen 500 MG TAB PO SCH ×2 (05:13→11:19)
[2022-09-30 06:28] LABS: #Eosinphils 0.3 thou/uL (0.0-0.7); #Lymphocytes 1.7 thou/uL (1.20-3.40); #Monocytes 0.8 thou/uL (0.11-0.59); #Neutrophils 6.5 thou/uL (1.40-6.50); %Basophils 0.3 % (0.0-1.0); %Lymphocytes 18.4 % (21.0-51.0); %Monocytes 8.5 % (0.0-10.0); %Neutrophils 69.7 % (42.0-75.0); Hemoglobin 9.8 g/dL (12.0-16.0); Mean Corpuscular HGB CONC 33.3 g/dL (32.0-36.0); Mean Corpuscular Hemoglobin 30.9 pg (27.0-31.0); Mean Corpuscular Volume 92.7 fl (78.0-98.0); Mean Platelet Volume 8.2 fL (7.4-10.4); Platelet Count 239 10x3/uL (130-400); RBC Distribution Width 12.8 % (11.5-14.5); Red Blood Cell (RBC) Count 3.16 mill/uL (4.20-5.40); White Blood Cell (WBC) Count 9.3 10x3/uL (4.8-10.8)
[2022-09-30 06:47] LABS: Anion Gap 9 mmol/L (10-20); BUN (Urea Nitrogen) 10 mg/dL (7.0-18.7); Calc. Creatinine Clearance 105 mL/min (70-130); Calcium 8.6 mg/dL (7.8-10.44); Carbon Dioxide 26 mmol/L (22-29); Chloride 108 mmol/L (98-107); Estimated GFR 114; Glucose 107 mg/dL (70-105); Magnesium 1.9 mg/dL (1.6-2.6); Phosphorus 3.4 mg/dL (2.3-4.7); Potassium 3.5 mmol/L (3.5-5.1); Sodium 139 mmol/L (136-145)
[2022-09-30] MEDS: Polyethylene Glycol 3350 17 GM Packet PO SCH (08:25)
[2022-09-30] MEDS: Senokot S 8.6-50 MG TAB PO SCH (08:26)
[2022-09-30] MEDS: Famotidine 20 MG TAB PO SCH (08:26)
[2022-09-30] MEDS: Gabapentin 300 MG CAP PO SCH (08:26)
[2022-09-30 12:25] VITALS: BP 101/66; TEMP 98.6
== END 2022-09-30 12:25 | disposition home or self-care (01) ==
LOC: ERS 23:48 → SURG A 09-29 03:07
PROVIDERS: ADMIT Specialist; ATTEND Specialist
PROC: 0PSG04Z Reposition Left Humeral Shaft with Internal Fixation Device, Open Approach (ICD-10-PCS; principal; 2022-09-29)
DX: S49.192A Other physeal fracture of lower end of humerus, left arm, initial encounter for closed fracture (principal); G89.11 Acute pain due to trauma; F17.210 Nicotine dependence, cigarettes, uncomplicated; V44.5XXA Car driver injured in collision with heavy transport vehicle or bus in traffic accident, initial encounter
CPT/HCPCS: 36415; 70450; 71260; 72125; 74177; 80048; 80053; 80306; 80307; 83690; 83735; 84100; 84703; 85025; 93005; 96365; 96375; C1713; G0378; G0390; J1100; J1885; J2270; J2405; J2704; J3010; J3490; J7050; Q9967; S0020